=== PATIENT | female | born 1970 | race Caucasian/White ===

== ENCOUNTER → 2024-03-10 08:52 | Outpatient (REF) | payer OTHER, SELFPAY | LOC: RSP 08:52 | PROVIDERS: ATTENDING PHYSICIAN Internal Medicine; FAMILY PHYSICIAN Nurse Practitioner | DX: M34.9 Systemic sclerosis, unspecified (principal) | CPT/HCPCS: 94727; 94729; 88738; 94010 ==

== ENCOUNTER → 2024-03-14 12:50 | Outpatient (REF) | payer OTHER, SELFPAY | LOC: HWRCS 12:50 | PROVIDERS: ATTENDING PHYSICIAN Internal Medicine; FAMILY PHYSICIAN Nurse Practitioner | DX: M34.9 Systemic sclerosis, unspecified (principal) | CPT/HCPCS: 93306 ==

== ENCOUNTER → 2024-06-27 12:54 | Outpatient (REF) | payer OTHER, SELFPAY | LOC: WDC 12:54 | PROVIDERS: ATTENDING PHYSICIAN Nurse Practitioner | DX: Z87.891 Personal history of nicotine dependence (principal); Z12.31 Encounter for screening mammogram for malignant neoplasm of breast | CPT/HCPCS: 71271; 77063; 77067 ==

== ENCOUNTER → 2024-07-04 13:24 | Outpatient (REF) | payer OTHER, SELFPAY | LOC: RAD 13:24 | PROVIDERS: ATTENDING PHYSICIAN Nurse Practitioner | DX: Z12.31 Encounter for screening mammogram for malignant neoplasm of breast (principal); Z12.2 Encounter for screening for malignant neoplasm of respiratory organs; Z72.0 Tobacco use; R09.89 Other specified symptoms and signs involving the circulatory and respiratory systems; N83.8 Other noninflammatory disorders of ovary, fallopian tube and broad ligament | CPT/HCPCS: 76830; 76856 ==

== ENCOUNTER → 2024-08-08 13:00 | Outpatient (REF) | payer OTHER, SELFPAY | LOC: RAD 13:00 | PROVIDERS: ATTENDING PHYSICIAN Nurse Practitioner | DX: R09.89 Other specified symptoms and signs involving the circulatory and respiratory systems (principal) | CPT/HCPCS: 93880 ==

== ENCOUNTER 2025-05-29 06:23 | Day surgery (SDC) | payer OTHER, SELFPAY | END 2025-05-29 09:01 | disposition home or self-care (01) | LOC: GI 06:23 | PROVIDERS: ATTENDING PHYSICIAN Internal Medicine Gastroenterology | DX: Z12.11 Encounter for screening for malignant neoplasm of colon (principal); D12.0 Benign neoplasm of cecum; K63.5 Polyp of colon; K62.1 Rectal polyp; K64.0 First degree hemorrhoids; Z86.0100 Personal history of colon polyps, unspecified | CPT/HCPCS: 45385; 45380; 45381; 88305 ==

== ENCOUNTER → 2025-07-03 12:56 | Outpatient (REF) | payer OTHER, SELFPAY | LOC: WDC 12:56 | PROVIDERS: ATTENDING PHYSICIAN Nurse Practitioner | DX: Z12.31 Encounter for screening mammogram for malignant neoplasm of breast (principal); Z87.891 Personal history of nicotine dependence; Z72.0 Tobacco use; M54.50 Low back pain, unspecified | CPT/HCPCS: 71271; 72110; 77063; 77067 ==

== ENCOUNTER 2025-07-18 06:09 | Day surgery (SDC) | payer OTHER, SELFPAY ==
[2025-07-18 07:00] VITALS: BP 128/81
[2025-07-18 07:15] VITALS: BMI 19.7
[2025-07-18 07:20] VITALS: BMI 19.7
[2025-07-18 09:00] VITALS: BP 128/93
[2025-07-18 09:15] VITALS: BP 133/73
[2025-07-18 09:26] VITALS: BP 123/85
== END 2025-07-18 09:30 | disposition home or self-care (01) ==
LOC: SDS 06:09
PROVIDERS: ATTENDING PHYSICIAN Internal Medicine Gastroenterology
DX: D12.3 Benign neoplasm of transverse colon (principal); K64.0 First degree hemorrhoids
CPT/HCPCS: 45390; 88305